=== PATIENT | female | born 1970 | race Caucasian/White ===

== ENCOUNTER 2016-11-12 17:16 | Emergency (ER) | payer OTHER ==
[2016-11-12 17:39] LABS: BASOPHIL 0.4 % (0-2); EOSINOPHIL 1.6 % (0-5); HCT 36.5 % (37.0-47.0); HGB 12.4 g/dl (12.5-16.0); LYMPHOCYTE 17.3 % (15-48); MCH 30.5 pg (25.0-31.0); MCV 89.7 fL (78.0-100.0); MONOCYTE 7.1 % (0-12); MPV 10.9 fL (6.0-9.5); NEUTROPHIL 73.6 % (41-80); PLT 310 K/uL (150-400); RBC 4.07 M/uL (4.20-5.40); RDW 12.6 % (11.5-14.0); WBC 11.3 K/uL (4.0-10.5)
[2016-11-12 17:52] LABS: INR 0.96 (0.9-1.2); PROTHROMBIN TIME 12.4 SECONDS (11.7-14.0)
[2016-11-12 17:54] LABS: D-DIMER 0.49 ug/mLFEU (0.00-0.41)
[2016-11-12 17:59] LABS: ALBUMIN 4.2 g/dL (3.5-5.0); BILIRUBIN - TOTAL 0.2 mg/dL (0.1-1.0); CREATININE 0.7 mg/dL (0.5-1.0); POTASSIUM 4.3 mmol/L (3.5-5.1); TOTAL PROTEIN 7.2 g/dL (6.4-8.3)
== END 2016-11-12 21:11 | disposition home or self-care (01) ==
LOC: FER 17:16
PROVIDERS: Emergency Medicine
DX: R07.89 Other chest pain (principal); Z82.3 Family history of stroke
CPT/HCPCS: 36415; 71020; 80053; 84484; 85025; 85379; 85610; 93005; J1885

== ENCOUNTER 2017-01-29 13:56 | Emergency (ER) | payer OTHER | END 2017-01-29 15:20 | disposition home or self-care (01) | LOC: FER 13:56 | DX: S29.012A Strain of muscle and tendon of back wall of thorax, initial encounter (principal); X50.0XXA Overexertion from strenuous movement or load, initial encounter; Y99.0 Civilian activity done for income or pay | CPT/HCPCS: 73030; 99283 ==